=== PATIENT | female | born 1970 | race Caucasian/White ===

== ENCOUNTER 2017-10-18 18:15 | Emergency (ER) | payer BC ==
[~2017-10-18] VITALS: Ht 165.1 cm; Wt 81.7 kg
[~2017-10-18 18:15] MED LIST: LEVO100T82 PO
[2017-10-18 18:38] VITALS: Ht 165.1 cm; Wt 81.7 kg
[2017-10-18] MEDS ORDERED: ONDANSETRON (ODT) 4 MG TAB ODT STA (20:03)
[2017-10-18 20:27] LABS: URINE BLOOD (Dip) POC Negative (NEGATIVE)
[2017-10-18] MEDS ORDERED: HYDROCODONE/APAP (5/325) TAB PO ONE (20:30)
[2017-10-18 20:49] LABS: ADD UMIC NO; UR ASCORBIC ACID NEGATIVE (NEGATIVE); UR BILIRUBIN (Dip) 1+ mg/dL (NEGATIVE); UR BLOOD (Dip) NEGATIVE (NEGATIVE); UR CLARITY CLEAR (CLEAR); UR COLOR YELLOW (YELLOW); UR GLUCOSE (Dip) NEGATIVE (NEGATIVE); UR KETONES (Dip) NEGATIVE (NEGATIVE); UR LEUKOCYTE ESTERASE (Dip) NEGATIVE Leu/ul (NEGATIVE); UR NITRITE (Dip) NEGATIVE (NEGATIVE); UR SPECIFIC GRAVITY (Dip) 1.017 (1.003-1.030); UR TOTAL PROTEIN (Dip) NEGATIVE (NEGATIVE); UR UROBILINOGEN (Dip) 2+ mg/dL (NEGATIVE)
--- NOTE | 2017-10-18 21:24 | ERD ---
ER Documentation Chief Complaint Chief Complaint Pt reports ST, RODRIGUEZ and larygitis for 3 days HPI This 47-year-old female who presents the emergency department today complaining of cough, sore throat, headache and nausea. Patient states that a month ago they found a mass on the left side of her neck and she is going to see a specialist tomorrow Dr. Clyde Ramirez. States that she thought she was just getting the flu but her cough is making her headache worse. States that she took Advil but is not helping. States that she recently started losing her voice a couple of days ago denies any fevers or chills. Denies any difficulty swallowing. ROS All systems reviewed and are negative except as per history of present illness. Medications Home Meds Active Scripts Ondansetron Hcl* (Zofran*) 4 Mg Tablet, 4 MG PO Q6H for NAUSEA AND/OR VOMITING, #30 TAB Prov:SENAIT ECHEVARRIA PA-C 10/18/17 Acetamin/Butalbital/Caffeine* (Fioricet*) [id number] Tab, 1 TAB PO Q6H Y for PAIN, #30 TAB Prov:SENAIT ECHEVARRIA PA-C 10/18/17 Naproxen* (Naprosyn*) 500 Mg Tablet, 500 MG PO BID Y for PAIN AND/OR INFLAMMATION, #30 TAB Prov:SENAIT ECHEVARRIA PA-C 10/18/17 Guaifenesin-Dextromethorphan* (Robitussin* DM) 100MG/10MG/5ML Syrup, 10 ML PO Q6H Y for COUGH for 5 Days, ML Prov:SENAIT ECHEVARRIA PA-C 10/18/17 Reported Medications Levothyroxine Sodium* (Levoxyl*) 100 Mcg Tablet, 100 MCG PO daily 01/05/12 Allergies Allergies: Coded Allergies: Pork/Porcine Containing Products (Unverified Allergy, Intermediate, ) egg (Unverified Allergy, Intermediate, 10/18/17) Shellfish (Verified Allergy, Mild, ITCH,SOB, 01/05/12) Penicillins (Verified Allergy, Unknown, 10/18/17) PMhx/Soc History of Surgery: Yes (hysterectomy,laly) Anesthesia Reaction: No Hx Neurological Disorder: No Hx Respiratory Disorders: No Hx Cardiac Disorders: No Hx Psychiatric Problems: No Hx Miscellaneous Medical Probl: Yes (THYROID) Hx Alcohol Use: No Hx Substance Use: No Hx Tobacco Use: No Smoking Status: Never smoker Physical Exam Vitals Vital Signs Date Time Temp Pulse Resp B/P Pulse Ox O2 Delivery O2 Flow Rate FiO2 10/18/17 23:17 98.0 72 20 137/78 Room Air 10/18/17 18:38 99.1 81 18 137/77 98 Physical Exam Const: NAD Head: Atraumatic Eyes: Normal Conjunctiva. PERRLA. EOM intact. ENT: Ears TM normal. Nose no drainage. Throat no erythema no exudate no vesicles Neck: Full range of motion..~ No meningismus. Resp: Clear to auscultation bilaterally Cardio: Regular rate and rhythm, no murmurs Abd: Soft, non tender, non distended. Normal bowel sounds Skin: No petechiae or rashes Back: No midline or flank tenderness Ext: No cyanosis, or edema. Cranial nerves II through XII intact. No gait ataxia. Neur: Awake and alert Psych: Normal Mood and Affect Results 24 hrs Laboratory Tests Test 10/18/17 20:28 10/18/17 20:30 Bedside Urine pH (LAB) 5.5 Bedside Urine Protein (LAB) Negative Bedside Urine Glucose (UA) Negative Bedside Urine Ketones (LAB) Negative Bedside Urine Blood Negative Bedside Urine Nitrite (LAB) Negative Bedside Urine Leukocyte Esterase (L Negative Urine Color YELLOW Urine Clarity CLEAR Urine pH 5.0 Urine Specific [place] 1.017 Urine Ketones NEGATIVEmg/dL Urine Nitrite NEGATIVEmg/dL Urine Bilirubin 1+mg/dL Urine Urobilinogen 2+mg/dL Urine Leukocyte Esterase NEGATIVELeu/ul Urine Hemoglobin NEGATIVEmg/dL Urine Glucose NEGATIVEmg/dL Urine Total Protein NEGATIVEmg/dl Current Medications Medications (Trade) Dose Ordered Sig/Darin Route PRN Reason Start Time Stop Time Status Last Admin Dose Admin Acetaminophen/ Hydrocodone Bitart ([place] (5/325)) 1 tab ONCE ONCE PO 10/18/17 20:30 10/18/17 20:31 DC 10/18/17 20:14 Ondansetron HCl (Zofran Odt) 4 mg ONCE STAT ODT 10/18/17 20:03 10/18/17 20:05 DC 10/18/17 20:13 Ketorolac Tromethamine (Toradol) 30 mg ONCE STAT IM 10/18/17 22:16 10/18/17 22:17 DC 10/18/17 22:21 RUN DATE: 10/18/17 [facility] Laboratory PAGE 1 RUN TIME: [id number] [place] [address] Etienne Summers M.D. Microfilm Technician VARINDER#: [id number] Name: ELAINE OLMSTEAD Age/Sex: 47/F Attend Dr: ILIANA KILLIAN MD Acct: [id number] MR# : [id number] : 1970 Location: [facility]TE Admit: 10/18/17 Specimen: [id number] Status: Complete Shannon: 10/18/17 Rcvd: 10/18 Source: [place] Sp Descrip: Procedure Result Microbiology RAPID STREP ANTIGEN BY EIA Final RAPID STREP ANTIGEN ,EIA NEGATIVE (Ref Range Neg) ................................................................................ ............ Flags: Critical Hi = *H Critical Lo = *L Microbiology Abnormal = * Abnormal Hi = H Abnormal Lo = L Blood Bank Abnormal = * Susceptability Flags: S = Sensitive R = Resistant I = Intermediate END OF REPORT RUN DATE: 10/18/17 [facility] Laboratory PAGE 1 RUN TIME: [id number] [place] [address] Etienne Summres M.D. Microfilm Technician VARINDER#: [id number] Name: ELAINE OLMSTEAD Age/Sex: 47/F Attend Dr: ILIANA KILLIAN MD Acct: [id number] MR# : [id number] : 1970 Location: [facility] [place] Admit: 10/18/17 Specimen: [id number] Status: Complete Shannon: 10/18/17 Rcvd: 10/18 Source: JONI Sp Descrip: Procedure Result Microbiology INFLUENZA A & B BY EIA Final INFLU A&B BY EIA INFLUENZA A NEGATIVE (Ref Range Neg) INFLUENZA B NEGATIVE (Ref Range Neg) ................................................................................ ............ Flags: Critical Hi = *H Critical Lo = *L Microbiology Abnormal = * Abnormal Hi = H Abnormal Lo = L Blood Bank Abnormal = * Susceptability Flags: S = Sensitive R = Resistant I = Intermediate END OF REPORT DIAGNOSTIC IMAGING REPORT Patient: ELAINE OLMSTEAD : 1970 Age: 47 Sex: F MR #: [id number] DOS: 10/18/172128 Ordering MD: SENAIT ECHEVARRIA PA-C Location: [facility]TE Room/Bed: PROCEDURE: CT Brain without contrast. CLINICAL INDICATION: Headache TECHNIQUE: A CT of the brain was performed on a multidetector CT scanner utilizing axial imaging from the skull base through the vertex without IV contrast. Multiplanar reformatted images were made. Images were reviewed on a PACS workstation. The CTDIvol is 44 mGy and the DLP is 720 mGycm. DICOM images are available. One or more of the following dose reduction techniques were utilized: 1.) Automated exposure control 2.) Adjustment of the mA +/- kV according to patient's size 3.) Use of iterative reconstruction technique. COMPARISON: None FINDINGS: There is no intracranial hemorrhage, mass effect, or midline shift. No extra- axial fluid collection is seen. The ventricles and sulci are normal in size and configuration. The density of the brain is normal, and the ascencio white matter differentiation appears well-preserved. The visualized paranasal sinuses and osseous structures are grossly unremarkable. IMPRESSION: 1. No evidence of acute intracranial pathology. 2. The brain is normal in appearance. .Karl Garcia MD, MD Date Time Electronically viewed and signed by .Karl Garcia MD, on 10/18/2017 22: 13 .A/ CC: SENAIT ECHEVARRIA PA-C Procedures/MDM This a 47-year-old female who presented to the emergency department today with multiple complaints. Patient was complaining of a sore throat, headache and other flulike symptoms and therefore did obtain a flu swab, strep swab and UA. UA is negative for infection Influenza a and B is negative Strep a antigen is negative She was given [place] for her headache as well as Zofran. Patient stated that her headache was persistent. Patient had no focal neurologic deficits and no gait ataxia however given that the medication did not help her pain I did question the patient further and she did indicate that she does have a history of migraines and had an x-ray of her head but was awaiting to get a CT scan to look further. She states that she was taking medications for her migraine but she ran out she does not know the name of the medication. Given patient's persistent headache I did obtain a head CT scan Head CT is unremarkable. Low suspicion for acute hemorrhage, mass, abscess, meningitis. She was then given Toradol and she reported improvement in pain. Patient was complaining of a sore throat and she did indicate that she was told she had a mass and has an appointment with a specialist tomorrow with Dr. Clyde Rodgers. Patient denies any difficulty swallowing. She did appear to have some laryngitis however this may also be viral. I have explained her to follow-up with the ENT specialist tomorrow as she is already going to see him. Do not feel the patient requires further workup or imaging. Patient symptoms at this time is consistent with headache, sore throat. Patient was given a prescription for Fioricet, Naprosyn, Zofran for home. She was instructed to keep her appointment with the specialist tomorrow. At this time the patient is stable for discharge and outpatient management. Patient should follow up with their PCP in the next 1-2 days. They may return to the emergency department sooner for any persistent or worsening of symptoms. Patient understood and agreed with the plan. Departure Diagnosis: Primary Impression: Multiple complaints Condition: Fair SENAIT ECHEVARRIA PA-C Oct 18, 2017 21:24
--- NOTE | 2017-10-18 22:13 | RADRPT ---
PROCEDURE: CT Brain without contrast. CLINICAL INDICATION: Headache TECHNIQUE: A CT of the brain was performed on a multidetector CT scanner utilizing axial imaging f rom the skull base through the vertex without IV contrast. Multiplanar reformatted images were made . Images were reviewed on a PACS workstation. The CTDIvol is 44 mGy and the DLP is 720 mGycm. DICOM images are available. One or more of the following dose reduction techniques were utilized: 1.) Automated exposure control 2.) Adjustment of the mA +/- kV according to patient's size 3.) Use of iterative reconstruction technique. COMPARISON: None FINDINGS: There is no intracranial hemorrhage, mass effect, or midline shift. No extra-axial fluid collection is seen. The ventricles and sulci are normal in size and configuration. The density of the brain is normal, and the ascencio white matter differentiation appears well-preserved. The visualized paranasal sinuses and osseous structures are grossly unremarkable. IMPRESSION: 1. No evidence of acute intracranial pathology. 2. The brain is normal in appearance. .Karl Garcia MD, Date Time Electronically viewed and signed by .Karl Garcia MD, on 10/18/2017 22:13 .A/
[2017-10-18] MEDS ORDERED: KETOROLAC 30 MG INJ IM STA (22:16)
[2017-10-18] MEDS ORDERED: UDROBDM PO (22:58)
[2017-10-18] MEDS ORDERED: NAPR-260 PO (22:59)
[2017-10-18] MEDS ORDERED: FIORICET PO (22:59)
[2017-10-18] MEDS ORDERED: ONDA4TAB8 PO (23:00)
[2017-10-18 23:17] VITALS: BP 137/78; PULSE 72; RESP 20; TEMP 98
== END 2017-10-18 23:18 | disposition home or self-care (01) ==
LOC: FTE 18:15
DX: R51 Headache (principal); R05 Cough; J02.9 Acute pharyngitis, unspecified; R11.0 Nausea
CPT/HCPCS: 70450; 81003; 87400; 87880; 96372; 99285; J1885